=== PATIENT | male | born 1995 | race Caucasian/White ===

== ENCOUNTER → 2018-09-12 | Outpatient (CLI) | payer OTHER ==
[~2018-09-12] MED LIST: MIRT15TA3 PO; NICO21PAT TD; SERT25TA PO
--- NOTE | 2018-09-12 14:31 | REP ---
Clinical: Recurrent asthma. Technique: Axial noncontrast high-resolution images obtained on inspiration and expiration with associated coronal and sagittal re-formations. Findings: Inspiration and expiration images demonstrate normal bilateral well aerated lung langley. No air trapping is appreciated. No significant interstitial changes, chronic fibroatelectatic changes, consolidation, or fibrosis noted. Pulmonary vasculature appears normal. No significant nodule or mass lesion. No pleural effusion. No pneumothorax. No peribronchial thickening or bronchiectasis. No obvious adenopathy. The mediastinum demonstrates normal thoracic aorta, pulmonary vasculature and heart/pericardium. Surrounding osseous structures are intact. Impression: Normal noncontrast high-resolution chest CT. Electronically Signed by Delta Girard MD 09/12/2018 02:23 P
== END ==
LOC: M RAD 13:50
PROVIDERS: ATTEND Internal Medicine Pulmonary Disease
DX: J45.40 Moderate persistent asthma, uncomplicated (principal)